=== PATIENT | male | born 1975 | race Caucasian/White ===

== ENCOUNTER 2021-04-07 10:15 | Emergency (ER) | payer OTHER ==
[2021-04-07 10:36] VITALS: PULSE 80; O2SAT 98
--- NOTE | 2021-04-07 10:51 | ERPHSYRPT ---
- History of Present Illness Time Seen by Provider: 04/07/21 10:17 Source: patient Exam Limitations: no limitations Patient Subjective Stated Complaint: Pt was working with a stump sapphire stylus grinder and cut his second finger on the right hand Triage Nursing Assessment: Pt brought self to the ER, laceration above medial knuckle to the right hand second finger, approx 2.5cm long curved shape, bleeding controled, doesn't appear to be in any distress Physician History: 45 years old male right-handed dominant with history of hypertension, hyperlipidemia, diabetes mellitus, obesity presented in the ER with chief complaint of right index finger middle phalanx dorsal aspect laceration while he was working with some sharp metal object at home prior to arrival. There was bleeding initially but stopped with applying pressure. Is complaining of dull aching to sharp pain with movements at interphalangeal joints with no numbness or tingling sensation in the distal finger. Up-to-date with tetanus. Occurred: just prior to arrival Method of Injury: incised Quality: constant, sharpness Severity of Pain-Max: moderate Severity of Pain-Current: mild Extremities Pain Location: 2nd finger: right Modifying Factors: Worsens With: movement Associated Symptoms: none Allergies/Adverse Reactions: ceftriaxone [From Rocephin] Allergy (Severe, Verified 04/07/21 10:36) Hives Penicillins Allergy (Intermediate, Verified 04/07/21 10:36) Swelling Home Medications: Metoprolol Succinate 100 mg [Toprol Xl 100 MG] 75 mg PO BID PRN 03/03/16 [History] Multivitamin [Multivitamins] 1 tab PO DAILY 03/03/16 [History] Cholecalciferol (Vitamin D3) [Vitamin D] 1,000 unit PO DAILY 12/02/17 [History] Magnesium Oxide 400 mg [Mag-Ox 400] 400 mg PO DAILY 12/02/17 [History] Metformin HCl 500 mg [Glucophage 500 MG] 1,000 mg PO BIDWM 12/02/17 [History] Amlodipine Besylate 5 mg [Norvasc 5 mg] 5 mg PO BID 04/07/21 [History] Labetalol HCl 200 mg PO DAILY 04/07/21 [History] Phentermine HCl 37.5 mg PO DAILY 04/07/21 [History] Semaglutide [Ozempic] 1 mg SQ WEEKLY 04/07/21 [History] Telmisartan 80 mg [Micardis 80 MG Tablet] 80 mg PO DAILY 04/07/21 [History] Hx Influenza Vaccination/Date Given: No Hx Pneumococcal Vaccination/Date Given: No Travel Risk - International Travel Have you traveled outside of the country in past 3 weeks: No - Coronavirus Screening Are you exhibiting any of the following symptoms?: No Close contact with a COVID-19 positive Pt in past 14-21 Days: No - Vaccine Status Have you recieved a Covid-19 vaccination: No - Review of Systems Constitutional: No Symptoms Eyes: No Symptoms Respiratory: No Symptoms Cardiac: No Symptoms Musculoskeletal: Injury Skin: No Symptoms Psychological: No Symptoms Hematologic/Lymphatic: No Symptoms - Past Medical History Pertinent Past Medical History: Yes Neurological History: No Pertinent History ENT History: No Pertinent History Cardiac History: Hypertension Respiratory History: No Pertinent History Endocrine Medical History: No Pertinent History Musculoskeletal History: Arthritis GI Medical History: No Pertinent History History: No Pertinent History Psycho-Social History: No Pertinent History Male Reproductive Disorders: No Pertinent History Other Medical History: hx cellulitis left lower leg - Past Surgical History Past Surgical History: Yes Neuro Surgical History: No Pertinent History Cardiac: Cardiac Catheterization Respiratory: No Pertinent History Gastrointestinal: No Pertinent History Genitourinary: No Pertinent History Musculoskeletal: Orthopedic Surgery Male Surgical History: No Pertinent History Other Surgical History: bilateral knee arthroscopy - Social History Smoking Status: Never smoker Exposure to second hand smoke: No Drug Use: none Patient Lives Alone: No Significant Family History: no pertinent family hx - Nursing Vital Signs Nursing Vital Signs: Initial Vital Signs Temperature 98.5 F 04/07/21 10:24 Pulse Rate 80 04/07/21 10:24 O2 Sat by Pulse Oximetry 98 04/07/21 10:24 Pain Scale Pain Intensity 5 - Physical Exam General Appearance: no apparent distress, alert Neck Exam: normal inspection, supple, full range of motion Cardiovascular/Respiratory Exam: normal breath sounds, regular rate/rhythm Hand Exam: laceration (2.25 cm laceration curved shape right index finger middle phalanx with partial tendon cut. Still able to extend but mild weakness against resistance.), limited ROM (Right second digit distal interphalangeal joint extension. Intact sensation distally.), soft tissue tenderness Neuro/Tendon Exam: normal sensation, tendon function deficit (Extensor right index), No normal tendon functions Mental Status Exam: alert, oriented x 3, cooperative Skin Exam: normal color SpO2 Interpretation: normal SpO2: 98 O2 Delivery: Room Air Procedures - Laceration/Wound Repair Right Hand Time of Procedure: 10:40 Wound Location: Right, hand Wound Length (cm): 2.25 Wound's Depth, Shape: into muscle, flap Wound Explored: clean Irrigated: Yes Hibiclens Prep: Yes Anesthesia: 1% Lidocaine Volume Anesthetic (ccs): 4 Wound Debrided: minimal Wound Repaired With: sutures Suture Size/Type: 4-0, nylon Number of Sutures: 4 Layer Closure?: No - Progress Progress: improved, re-examined Progress Note: 04/07/21 10:48 Patient is up-to-date with tetanus. Does have partial tendon cut with some extensor deficit. Laceration is repaired. Recommended outpatient follow-up with hand surgery which patient will do. Discussed with hand surgery and they will see patient in 1 to 2 days. Discussed with patient about importance of hand surgery follow-up to avoid permanent disability. Counseled pt/family regarding: diagnosis, need for follow-up - Departure Departure Disposition: Home Clinical Impression: Finger laceration Qualifiers: Encounter type: initial encounter Finger: index finger Damage to nail status: without damage Foreign body presence: without foreign body Laterality: right Qualified Code(s): S61.210A - Laceration without foreign body of right index finger without damage to nail, initial encounter Condition: Good Critical Care Time: No Referrals: CONSTANCE KRUGER MD [Primary Care Provider] - Follow Up with PCP/3 days CASI MURPHY MD [NON-STAFF PHY W/O PRIVILEGES] - (1-2 days for re evaluation ) Instructions: Laceration Repair With Stitches (DC) Additional Instructions: Keep it clean. Take Tylenol/ibuprofen as needed for pain. Follow-up with primary care and hand surgery for reevaluation as you have a partial tendon tear which could leave permanent disability. Return to ER for increasing pain swelling redness discharge/fever chills etc.
== END 2021-04-07 10:55 | disposition home or self-care (01) ==
LOC: ED 10:15
DX: S61.210A Laceration without foreign body of right index finger without damage to nail, initial encounter (principal); W31.89XA Contact with other specified machinery, initial encounter; Y92.9 Unspecified place or not applicable; Y99.9 Unspecified external cause status; I10 Essential (primary) hypertension; E78.5 Hyperlipidemia, unspecified; Z79.899 Other long term (current) drug therapy; Z79.4 Long term (current) use of insulin
CPT/HCPCS: 12001; 99283

== ENCOUNTER 2021-11-30 08:11 | Day surgery (SDC) | payer BC ==
[2021-11-30] MEDS ORDERED: LIDOCAINE HCL 2% 100 MG/5 ML IJ ONE (08:12)
[2021-11-30] MEDS ORDERED: DIPRIVAN 200 MG/20 ML IV ONE (09:52)
[2021-11-30] MEDS ORDERED: Ketamine HCl 50 MG/ML ONE (09:52)
[2021-11-30] MEDS ORDERED: Lactated Ringers 1,000 ML IV ONE (10:15)
--- NOTE | 2021-11-30 11:47 | XRAY ---
Indication: Bilateral L4-S1 MBB. Intraoperative fluoroscopy was provided for 18 seconds. Single digital spot image submitted for interpretation demonstrates posterior needle tips projecting over the expected left and right L4-S1 nerve roots. Correlate with intraoperative findings/report.
--- NOTE | 2021-11-30 12:48 | XRAY ---
18 seconds of fluoroscopy was used in surgery for a bilateral L4-S1 MBB.
== END 2021-11-30 10:15 | disposition home or self-care (01) ==
LOC: SDC-PAIN 08:11
PROVIDERS: ATTEND Psychiatry & Neurology Pain Medicine
DX: M47.816 Spondylosis without myelopathy or radiculopathy, lumbar region (principal); I10 Essential (primary) hypertension; E11.9 Type 2 diabetes mellitus without complications; Z79.899 Other long term (current) drug therapy
CPT/HCPCS: 64493; 64494; 72020; 77002; 82947; J2704

== ENCOUNTER 2022-04-26 07:33 | Day surgery (SDC) | payer BC ==
[2022-04-26] MEDS ORDERED: BUPIVACAINE 0.5% VIAL IJ ONE (07:34)
[2022-04-26] MEDS ORDERED: DIPRIVAN 200 MG/20 ML IV ONE (08:51)
[2022-04-26] MEDS ORDERED: Xylocaine-Mpf 2% 5 Ml Vial ONE (08:53)
[2022-04-26] MEDS ORDERED: Lactated Ringers 1,000 ML IV ONE (09:15)
--- NOTE | 2022-04-26 09:34 | XRAY ---
Indication: Bilateral L4-S1 MBB. Intraoperative fluoroscopy provided for 15 seconds. Single digital spot image submitted for interpretation demonstrates posterior needle tips projecting over the expected left and right L4-S1 nerve roots. Correlate with intraoperative findings/report.
--- NOTE | 2022-04-26 10:48 | XRAY ---
15 seconds of fluoroscopy was used in surgery for a bilateral L4-S1 MBB.
== END 2022-04-26 09:14 | disposition home or self-care (01) ==
LOC: SDC-PAIN 07:33
PROVIDERS: ATTEND Psychiatry & Neurology Pain Medicine
DX: M47.816 Spondylosis without myelopathy or radiculopathy, lumbar region (principal); E11.9 Type 2 diabetes mellitus without complications; I10 Essential (primary) hypertension; Z79.899 Other long term (current) drug therapy
CPT/HCPCS: 64493; 72020; 77002; 82947; J2704

== ENCOUNTER 2022-05-31 07:41 | Day surgery (SDC) | payer BC ==
[2022-05-31] MEDS ORDERED: Depo-Medrol 40 MG/ML IM ONE (07:42)
[2022-05-31] MEDS ORDERED: Marcaine Mpf 0.5% Vial 30 Ml IJ ONE (07:42)
[2022-05-31] MEDS ORDERED: XYLOCAINE-MPF 1% 5ML SDV IJ ONE (07:42)
[2022-05-31] MEDS ORDERED: DIPRIVAN 200 MG/20 ML IV ONE (09:15)
--- NOTE | 2022-05-31 10:05 | XRAY ---
Indication: Right L4-S1 RFA. Intraoperative fluoroscopy provided for 32 seconds. 3 digital spot image submitted for interpretation demonstrate posterior needle tips projecting over the expected right L4-S1 nerve roots. Correlate with intraoperative findings/report.
[2022-05-31] MEDS ORDERED: Lactated Ringers 1,000 ML IV ONE (10:52)
--- NOTE | 2022-05-31 12:07 | XRAY ---
32 seconds of fluoroscopy was used in surgery for a right L4-S1 RFA.
== END 2022-05-31 09:41 | disposition home or self-care (01) ==
LOC: SDC-PAIN 07:41
PROVIDERS: ATTEND Psychiatry & Neurology Pain Medicine
DX: M47.816 Spondylosis without myelopathy or radiculopathy, lumbar region (principal); E11.9 Type 2 diabetes mellitus without complications; Z79.899 Other long term (current) drug therapy
CPT/HCPCS: 64635; 64636; 72100; 77002; 82947; J1030; J2704

== ENCOUNTER 2022-06-07 07:55 | Day surgery (SDC) | payer BC ==
[2022-06-07] MEDS ORDERED: Marcaine Mpf 0.5% Vial 30 Ml IJ ONE (07:56)
[2022-06-07] MEDS ORDERED: XYLOCAINE-MPF 1% 5ML SDV IJ ONE (07:56)
[2022-06-07] MEDS ORDERED: Depo-Medrol 40 MG/ML IM ONE (07:56)
[2022-06-07] MEDS ORDERED: DIPRIVAN 200 MG/20 ML IV ONE ×2 (08:59→09:06)
[2022-06-07] MEDS ORDERED: Lactated Ringers 1,000 ML IV ONE (09:23)
--- NOTE | 2022-06-07 11:33 | XRAY ---
Indication: Left L4-S1 RFA. Intraoperative fluoroscopy provided for 33 seconds. 3 digital spot image submitted for interpretation demonstrates posterior needle tips projecting over the expected left L4-S1 nerve roots. Correlate with intraoperative findings/report.
--- NOTE | 2022-06-07 12:01 | XRAY ---
33 seconds fluoroscopy time in surgery for left L4-S1 RFA.
== END 2022-06-07 09:27 | disposition home or self-care (01) ==
LOC: SDC-PAIN 07:55
PROVIDERS: ATTEND Psychiatry & Neurology Pain Medicine
DX: M47.816 Spondylosis without myelopathy or radiculopathy, lumbar region (principal); E11.9 Type 2 diabetes mellitus without complications; Z79.899 Other long term (current) drug therapy
CPT/HCPCS: 64635; 64636; 72100; 77002; 82947; J1030; J2704

== ENCOUNTER 2024-02-20 15:50 | Day surgery (SDC) | payer OTHER ==
[2024-02-20] MEDS ORDERED: Sodium Chloride 0.9(Preservative Free) 10 ML IJ ONE (15:51)
[2024-02-20] MEDS ORDERED: Decadron 4 MG INJ IV ONE (15:51)
[2024-02-20] MEDS ORDERED: LIDOCAINE HCL 1% 50 MG/5 ML VL PF IJ ONE (15:51)
[2024-02-20] MEDS ORDERED: Lactated Ringers 1,000 ML IV ONE (17:03)
--- NOTE | 2024-02-20 18:48 | XRAY ---
Indication: Cervical LUIS Intraoperative fluoroscopy provided for 47 seconds. 2 digital spot images submitted for interpretation demonstrates posterior needle tip projecting posterior to cervical thoracic junction. Small amount of contrast injected for needle tip placement. Correlate with intraoperative findings/report. Incidental C6-C7 fusion hardware
--- NOTE | 2024-02-21 08:50 | XRAY ---
47 seconds of fluoroscopy was used in surgery for a cervical LUIS.
== END 2024-02-20 17:45 | disposition home or self-care (01) ==
LOC: SDC-PAIN 15:50
PROVIDERS: ATTEND Psychiatry & Neurology Pain Medicine
DX: M54.12 Radiculopathy, cervical region (principal); E11.9 Type 2 diabetes mellitus without complications
CPT/HCPCS: 62321; 72040; 77003; 82947; J1100; J2001; Q9966

== ENCOUNTER 2024-09-10 15:39 | Day surgery (SDC) | payer OTHER ==
[2024-09-10] MEDS ORDERED: LIDOCAINE HCL 1% AMPUL 5 ML IJ ONE (15:40)
[2024-09-10] MEDS ORDERED: BUPIVACAINE 0.5% VIAL IJ ONE (15:40)
[2024-09-10] MEDS ORDERED: Depo-Medrol 40 MG/ML IM ONE (15:40)
[2024-09-10] MEDS ORDERED: Marcaine Mpf 0.5% Vial 30 Ml ONE (18:05)
--- NOTE | 2024-09-10 18:33 | XRAY ---
Indication: Right shoulder and subacromial bursa injection. Intraoperative fluoroscopy provided for 27 seconds. 3 digital spot images submitted for interpretation demonstratesneedle tip projecting over right glenohumeral joint superiorly. Second needle tip subacromial. Small amount of contrast injected for needle tip placement. Correlate with intraoperative findings/report.
--- NOTE | 2024-09-11 08:49 | XRAY ---
27 seconds of fluoroscopy was used in surgery for a right intra-articular shoulder and subacromial bursa injection.
== END 2024-09-10 18:28 | disposition home or self-care (01) ==
LOC: SDC-PAIN 15:39
PROVIDERS: ATTEND Psychiatry & Neurology Pain Medicine
DX: M19.011 Primary osteoarthritis, right shoulder (principal); E11.9 Type 2 diabetes mellitus without complications
CPT/HCPCS: 73030; 77002; 82947

== ENCOUNTER 2024-11-19 08:37 | Day surgery (SDC) | payer OTHER ==
[2024-11-19] MEDS ORDERED: BUPIVACAINE 0.5% VIAL IJ ONE (08:38)
[2024-11-19] MEDS ORDERED: LIDOCAINE HCL 1% AMPUL 5 ML IJ ONE (08:38)
[2024-11-19] MEDS ORDERED: Depo-Medrol 40 MG/ML IM ONE (08:38)
--- NOTE | 2024-11-19 11:46 | XRAY ---
Indication: Right L4-S1 RFA. Intraoperative fluoroscopy provided for 28 seconds. 3 digital spot image submitted for interpretation demonstrates posterior needle tips projecting over the expected right L4-S1 nerve roots. Correlate with intraoperative findings/report.
--- NOTE | 2024-11-19 12:54 | XRAY ---
28 seconds of fluoroscopy was used in surgery for a right L4-S1 RFA.
== END 2024-11-19 10:02 | disposition home or self-care (01) ==
LOC: SDC-PAIN 08:37
PROVIDERS: ATTEND Psychiatry & Neurology Pain Medicine
DX: M47.816 Spondylosis without myelopathy or radiculopathy, lumbar region (principal); E11.9 Type 2 diabetes mellitus without complications
CPT/HCPCS: 64635; 64636; 72100; 77002; 82947

== ENCOUNTER 2024-11-26 14:20 | Day surgery (SDC) | payer OTHER ==
[2024-11-26] MEDS ORDERED: Depo-Medrol 40 MG/ML IM ONE (14:21)
[2024-11-26] MEDS ORDERED: BUPIVACAINE 0.5% VIAL IJ ONE (14:21)
[2024-11-26] MEDS ORDERED: LIDOCAINE HCL 1% AMPUL 5 ML IJ ONE (14:21)
--- NOTE | 2024-11-26 18:56 | XRAY ---
Indication: Left L4-S1 RFA. Intraoperative fluoroscopy provided for 29 seconds. 3 digital spot image submitted for interpretation demonstrates posterior needle tips projecting over expected left L4-S1 nerve roots. Correlate with intraoperative findings/report.
--- NOTE | 2024-11-26 19:12 | XRAY ---
29 seconds of fluoroscopy used in surgery for a left L4-S1 RFA.
== END 2024-11-26 16:25 ==
LOC: SDC-PAIN 14:20
PROVIDERS: ATTEND Psychiatry & Neurology Pain Medicine
DX: M47.817 Spondylosis without myelopathy or radiculopathy, lumbosacral region (principal); E11.9 Type 2 diabetes mellitus without complications
CPT/HCPCS: 64635; 64636; 72100; 77002; 82947